=== PATIENT | male | born 1950 | race Caucasian/White ===

== ENCOUNTER 2016-11-15 18:56 | Emergency (ER) | payer OTHER ==
[2016-11-15 20:29] LABS: CALCIUM 9.2 mg/dL (8.5-10.1); CARBON DIOXIDE 23.4 mmol/L (21-32); CHLORIDE SERUM 96 mmol/L (98-107); CREATININE SERUM 0.9 mg/dL (0.7-1.3); GFR1 > 60 mL/min; GLUCOSE SERUM 176 mg/dL (74-106); POTASSIUM SERUM 3.3 mmol/L (3.5-5.1); SODIUM SERUM 132 mmol/L (136-145)
[2016-11-15 21:11] VITALS: BP 140/78
== END 2016-11-15 21:10 | disposition home or self-care (01) ==
LOC: ED 18:56
PROVIDERS: Emergency Medicine
DX: R33.9 Retention of urine, unspecified (principal); I10 Essential (primary) hypertension

== ENCOUNTER 2017-11-15 22:46 | Inpatient (IN) | payer OTHER ==
[~2017-11-15] VITALS: Ht 175.3 cm; Wt 95.7 kg
[2017-11-15 23:31] LABS: BASOPHIL % 0.2 % (0-2); PLATELET COUNT 205 x10^3mcL (130-400); RED CELL DISTRIBUTION WIDTH 13.9 % (11.5-14.5)
[2017-11-15 23:38] LABS: CARBON DIOXIDE 28.2 mmol/L (21-32); CHLORIDE SERUM 102 mmol/L (98-107); CREATININE SERUM 0.8 mg/dL (0.7-1.3); GFR1 > 60 mL/min; GLUCOSE SERUM 174 mg/dL (74-106); POTASSIUM SERUM 3.8 mmol/L (3.5-5.1); SODIUM SERUM 140 mmol/L (136-145)
[2017-11-15 23:50] LABS: ALBUMIN 4.3 g/dL (3.4-5.0); ALKALINE PHOSPHATASE 131 U/L (46-116); ALT/SGPT 252 U/L (16-63); AST/SGOT 380 U/L (15-37); BILIRUBIN TOTAL 0.8 mg/dL (0.20-1.00); TOTAL PROTEIN, SERUM 7.8 g/dL (6.4-8.2)
[2017-11-15 23:52] LABS: AMYLASE 612 U/L (25-115)
[2017-11-16 00:12] LABS: LIPASE 11943 IU/L (73-393)
[2017-11-16 01:39] LABS: microscopic required? YES; urine erythrocyte NEGATIVE (NEGATIVE)
[2017-11-16] MEDS ORDERED: TAMSULOSIN HYD0.4 M1 PO (01:43)
[2017-11-16] MEDS ORDERED: FINASTERIDE5 M1 PO (01:43)
[2017-11-16] MEDS ORDERED: NOR10 PO (01:44)
[2017-11-16] MEDS ORDERED: ENALAPRIL MALEA20 MG PO (01:44)
[2017-11-16 03:53] LABS: CHOLESTEROL/HDL RATIO 4.6; MAGNESIUM 2.1 mg/dL (1.8-2.4); PHOSPHOROUS 3.9 mg/dL (2.5-4.9)
[2017-11-16 04:09] LABS: FREE T4 1.22 ng/dL (0.76-1.46); FREE THYROXINE INDEX 3.6 ug/dL (1.4-4.5); T4(THYROXINE) 10.4 ug/dL (4.7-13.3)
[2017-11-16 04:19] VITALS: BP 149/75
[2017-11-16 04:30] VITALS: BP 149/75
[2017-11-16 04:45] LABS: T3 TOTAL 0.89 ng/mL
[2017-11-16 09:04] VITALS: Ht 175.3 cm; Wt 95.7 kg
[2017-11-16 10:54] LABS: AMPHETAMINE QUAL UR NONE DETECTED (NEG <=1000)
[2017-11-16 11:00] VITALS: BP 107/55
[2017-11-16 12:25] LABS: PLATELET COUNT 166 x10^3mcL (130-400)
[2017-11-16 12:30] LABS: CALCIUM 8.2 mg/dL (8.5-10.1); CARBON DIOXIDE 23.5 mmol/L (21-32); CHLORIDE SERUM 104 mmol/L (98-107); CREATININE SERUM 0.9 mg/dL (0.7-1.3); GFR1 > 60 mL/min; GLUCOSE SERUM 164 mg/dL (74-106); MAGNESIUM 1.5 mg/dL (1.8-2.4); PHOSPHOROUS 3.7 mg/dL (2.5-4.9); SODIUM SERUM 138 mmol/L (136-145)
[2017-11-16 12:36] LABS: AMYLASE 223 U/L (25-115); LIPASE 1650 IU/L (73-393)
[2017-11-16 13:07] LABS: BAND NEUTROPHIL 31 % (0-10); BASOPHIL 0 % (0-2); MONOCYTE 4 % (0-7); SEGMENTED NEUTROPHILS 62 % (37-75)
[2017-11-16 15:51] VITALS: BP 122/62
[2017-11-16 20:35] LABS: PLATELET COUNT 152 x10^3mcL (130-400); RED CELL DISTRIBUTION WIDTH 14.5 % (11.5-14.5)
[2017-11-16 20:56] VITALS: BP 121/64
[2017-11-16 21:33] LABS: BAND NEUTROPHIL 19 % (0-10); BASOPHIL 0 % (0-2); MONOCYTE 3 % (0-7); SEGMENTED NEUTROPHILS 75 % (37-75)
[2017-11-16 21:34] LABS: PLATELET MORPHOLOGY PLATELETS NORMAL; rbc morphology (normal/abnorm) NORMAL (NORMAL)
[2017-11-17 05:35] VITALS: BP 120/70
[2017-11-17 06:34] LABS: PLATELET COUNT 155 x10^3mcL (130-400); RED CELL DISTRIBUTION WIDTH 14.4 % (11.5-14.5)
[2017-11-17 06:59] LABS: CALCIUM 8.2 mg/dL (8.5-10.1); CARBON DIOXIDE 24.6 mmol/L (21-32); CHLORIDE SERUM 103 mmol/L (98-107); CREATININE SERUM 0.8 mg/dL (0.7-1.3); GFR1 > 60 mL/min; GLUCOSE SERUM 145 mg/dL (74-106); PHOSPHOROUS 2.9 mg/dL (2.5-4.9); SODIUM SERUM 138 mmol/L (136-145)
[2017-11-17 09:00] VITALS: BP 121/65
[2017-11-17 09:51] LABS: BAND NEUTROPHIL 6 % (0-10); BASOPHIL 0 % (0-2); MONOCYTE 1 % (0-7); PLATELET MORPHOLOGY PLATELETS INCREASED; SEGMENTED NEUTROPHILS 92 % (37-75); rbc morphology (normal/abnorm) NORMAL (NORMAL)
[2017-11-17 13:26] VITALS: BP 151/71
[2017-11-17 16:34] VITALS: BP 146/82
[2017-11-17 21:43] VITALS: BP 150/85
[2017-11-18 07:22] LABS: PLATELET COUNT 156 x10^3mcL (130-400); RED CELL DISTRIBUTION WIDTH 14.5 % (11.5-14.5)
[2017-11-18 07:30] LABS: BASOPHIL % 0 % (0-2)
[2017-11-18 07:52] LABS: CALCIUM 8.3 mg/dL (8.5-10.1); CARBON DIOXIDE 26.2 mmol/L (21-32); CHLORIDE SERUM 102 mmol/L (98-107); CREATININE SERUM 0.7 mg/dL (0.7-1.3); GFR1 > 60 mL/min; GLUCOSE SERUM 121 mg/dL (74-106); MAGNESIUM 2.1 mg/dL (1.8-2.4); POTASSIUM SERUM 3.6 mmol/L (3.5-5.1); SODIUM SERUM 135 mmol/L (136-145)
[2017-11-18 10:01] VITALS: BP 158/84
[2017-11-18 14:06] VITALS: BP 149/84
[2017-11-18 17:31] VITALS: BP 153/82
[2017-11-18 20:33] VITALS: BP 131/72
[2017-11-19 05:38] VITALS: BP 149/73
[2017-11-19 06:50] LABS: BASOPHIL % 0.3 % (0-2); PLATELET COUNT 177 x10^3mcL (130-400)
[2017-11-19 06:53] LABS: CALCIUM 8.4 mg/dL (8.5-10.1); CARBON DIOXIDE 27.6 mmol/L (21-32); CHLORIDE SERUM 103 mmol/L (98-107); CREATININE SERUM 0.6 mg/dL (0.7-1.3); GFR1 > 60 mL/min; GLUCOSE SERUM 117 mg/dL (74-106); MAGNESIUM 1.9 mg/dL (1.8-2.4); PHOSPHOROUS 2.9 mg/dL (2.5-4.9); POTASSIUM SERUM 3.5 mmol/L (3.5-5.1); SODIUM SERUM 138 mmol/L (136-145)
[2017-11-19 07:17] LABS: RED CELL DISTRIBUTION WIDTH 14.9 % (11.5-14.5)
[2017-11-19 08:45] VITALS: BP 144/75
[2017-11-19 10:32] VITALS: BP 142/69
[2017-11-19] MEDS ORDERED: MERREM IV1 GM INJ (11:59)
[2017-11-19] MEDS ORDERED: COL100 PO (12:00)
[2017-11-19] MEDS ORDERED: LAC PO (12:00)
[2017-11-19] MEDS ORDERED: ONDANSETRON4 M3 PO (12:01)
[2017-11-19] MEDS ORDERED: SIMETHICONE80 MG CH (12:01)
[2017-11-19] MEDS ORDERED: KETOROLAC TR15 MG/M1 IV (12:01)
[2017-11-19] MEDS ORDERED: AMB5 PO (12:01)
[2017-11-19] MEDS ORDERED: TYL325 PO (12:02)
[2017-11-19 14:02] VITALS: BP 142/69
[2017-11-19 18:05] VITALS: BP 143/72
[2017-11-19 21:15] VITALS: BP 155/77
[2017-11-20 05:59] VITALS: BP 128/69
[2017-11-20 06:28] LABS: CALCIUM 8.9 mg/dL (8.5-10.1); CARBON DIOXIDE 26.2 mmol/L (21-32); CHLORIDE SERUM 102 mmol/L (98-107); CREATININE SERUM 0.6 mg/dL (0.7-1.3); GFR1 > 60 mL/min; GLUCOSE SERUM 136 mg/dL (74-106); POTASSIUM SERUM 3.6 mmol/L (3.5-5.1); SODIUM SERUM 136 mmol/L (136-145)
[2017-11-20 06:29] LABS: BASOPHIL % 0.2 % (0-2); PLATELET COUNT 213 x10^3mcL (130-400)
[2017-11-20 07:04] LABS: RED CELL DISTRIBUTION WIDTH 14.6 % (11.5-14.5)
[2017-11-20 09:46] VITALS: BP 151/73
[2017-11-20] MEDS ORDERED: MERREM IV1 GM INJ (15:29)
[2017-11-20 15:53] VITALS: BP 142/74; BP 151/73
[2017-11-20 17:34] VITALS: BP 142/74
[2017-11-20 20:31] VITALS: BP 139/66
== END 2017-11-20 21:27 | DRG 853 ==
LOC: ED 22:46 → DU 11-16 01:32 → MU 11-16 01:32 → DU 11-16 04:05 → MU 11-17 09:36
PROVIDERS: Emergency Medicine; Family Medicine; Student in an Organized Health Care Education/Training Program; Surgery
PROC: 0FT44ZZ Resection of Gallbladder, Percutaneous Endoscopic Approach (ICD-10-PCS; principal; 2017-11-16 13:00)
DX: A41.9 Sepsis, unspecified organism (principal); K85.10 Biliary acute pancreatitis without necrosis or infection; N17.0 Acute kidney failure with tubular necrosis; N39.0 Urinary tract infection, site not specified; K80.00 Calculus of gallbladder with acute cholecystitis without obstruction; E87.1 Hypo-osmolality and hyponatremia; R65.20 Severe sepsis without septic shock; D64.9 Anemia, unspecified; B96.20 Unspecified Escherichia coli [E. coli] as the cause of diseases classified elsewhere; E83.42 Hypomagnesemia; I10 Essential (primary) hypertension; N40.0 Benign prostatic hyperplasia without lower urinary tract symptoms; R73.03 Prediabetes; E83.39 Other disorders of phosphorus metabolism; Z16.12 Extended spectrum beta lactamase (ESBL) resistance; Z68.29 Body mass index [BMI] 29.0-29.9, adult
CPT/HCPCS: 83880; 84439; J1170; J1644; J1885; J2185; J2270; J2405; J2543; J2704; J2710; J3010; J3490; J7030; J7120; Q0092; Q0162

== ENCOUNTER 2019-03-31 12:47 | Emergency (ER) | payer OTHER ==
[~2019-03-31] VITALS: Ht 172.7 cm; Wt 74.8 kg
[~2019-03-31 12:47] MED LIST: AMB5 PO; COL100 PO; ENALAPRIL MALEA20 MG PO; FINASTERIDE5 M1 PO; KETOROLAC TR15 MG/M1 IV; LAC PO; MERREM IV1 GM INJ; NOR10 PO; ONDANSETRON4 M3 PO; SIMETHICONE80 MG CH; TAMSULOSIN HYD0.4 M1 PO; TYL325 PO
[2019-03-31 13:00] VITALS: Ht 172.7 cm; Wt 74.8 kg
[2019-03-31 16:27] LABS: BASOPHIL % 0.2 % (0-2); PLATELET COUNT 207 x10^3mcL (130-400); RED CELL DISTRIBUTION WIDTH 14.1 % (11.5-14.5)
[2019-03-31 16:38] LABS: CARBON DIOXIDE 27.4 mmol/L (21-32); CHLORIDE SERUM 100 mmol/L (98-107); CREATININE SERUM 0.6 mg/dL (0.7-1.3); GFR1 > 60 mL/min; GLUCOSE SERUM 126 mg/dL (74-106); POTASSIUM SERUM 4.2 mmol/L (3.5-5.1); SODIUM SERUM 139 mmol/L (136-145)
[2019-03-31 16:42] LABS: ALBUMIN 4.3 g/dL (3.4-5.0); ALKALINE PHOSPHATASE 84 U/L (46-116); ALT/SGPT 31 U/L (16-63); AST/SGOT 16 U/L (15-37); BILIRUBIN TOTAL 0.7 mg/dL (0.20-1.00); LIPASE 60 IU/L (73-393); TOTAL PROTEIN, SERUM 8.1 g/dL (6.4-8.2)
[2019-03-31 18:54] LABS: UA SPECIFIC GRAVITY 1.015 (1.005-1.035); microscopic required? YES; urine erythrocyte TRACE (NEGATIVE)
[2019-03-31 19:50] VITALS: BP 138/71
== END 2019-03-31 19:50 | disposition home or self-care (01) ==
LOC: ED 12:47
PROVIDERS: Emergency Medicine
DX: N39.0 Urinary tract infection, site not specified (principal); R42 Dizziness and giddiness; R10.13 Epigastric pain; I10 Essential (primary) hypertension; N40.0 Benign prostatic hyperplasia without lower urinary tract symptoms
CPT/HCPCS: J0696; J7060; Q9967